=== PATIENT | female | born 1945 | race Hispanic/Latino ===

== ENCOUNTER 2018-07-22 12:03 | Emergency (ER) | payer MEDICARE, MEDICAID ==
[2018-07-22 12:05] VITALS: O2SAT 99
[2018-07-22] MEDS ORDERED: Tdap Vaccine 0.5 ml Vial (10-64 yrs) IM ONE ×2 (13:07→13:59)
--- NOTE | 2018-07-22 13:56 | ED PDOC ---
HPI: Trauma/Fall - HPI Time Seen by Provider: 07/22/18 12:41 Chief Complaint (Nursing): Trauma Chief Complaint (Provider): Trauma History Per: Patient History/Exam Limitations: no limitations Onset/Duration Of Symptoms: Hrs Location Of Injury: Left: Knee, Wrist Severity: Moderate Associated Symptoms: denies: Dizziness, Dazed, LOC, Seizure, Memory Impairment Additional Complaint(s): 73 y/o female presents to the ED complaining of tripping and falling on [address] at 12pm today. Patient states one of the [place] was elevated and tripped landing oh her left side of the body. She reports she tried to break her fall with left hand and landed on her left knee and face. Patient is compl aining of headache, facial pain, left wrist pain, and left knee pain. Patient denies loss of consciousness, change in vision, nausea, vomiting, or any blood thinner medication. Last Tetanus Vaccination unknown PMD: Elvis Mosquera - Fall Fall:Prior To Injury: Tripped. denies: Passed Out, Almost Passed Out, Slipped, [place] Lightheaded, Vertigo, Lost Balance, Other Past Medical History Reviewed: Historical Data, Nursing Documentation, Vital Signs Vital Signs: Last Vital Signs Temp 98 F 07/22/18 12:05 Pulse 86 07/22/18 12:05 Resp 16 07/22/18 12:05 BP 155/86 H 07/22/18 12:05 Pulse Ox 99 07/22/18 12:05 Primary Care Provider: Elvis Bullard - Medical History PMH: No Chronic Diseases - Surgical History Surgical History: No Surg Hx - Family History Family History: States: Unknown Family Hx - Living Arrangements Living Arrangements: Alone - Social History Alcohol: None Drugs: Denies - Immunization History Hx Influenza Vaccination: No Hx Pneumococcal Vaccination: No - Home Medications Home Medications: Ambulatory Orders Medication Instructions Recorded Bacitracin OINT 1 applic TP BID #1 tube 07/22/18 Ibuprofen [Motrin] 400 mg PO Q6H PRN #30 tab 07/22/18 - Allergies Allergies/Adverse Reactions: Allergies Allergy/AdvReac Type Severity Reaction Status Date / Time No Known Allergies Allergy Verified 07/22/18 12:07 Review of Systems ROS Statement: Except As Marked, All Systems Reviewed And Found Negative Eyes: Negative for: Vision Change Gastrointestinal: Negative for: Nausea, Vomiting Musculoskeletal: Positive for: Arm Pain (wrist pain), Leg Pain (left knee pain). Negative for: Neck Pain, Shoulder Pain, Back Pain, Hand Pain, Foot Pain Neurological: Positive for: Headache. Negative for: Weakness, Incoordination, Confusion, Altered Mental Status, Dizziness Physical Exam - Reviewed Nursing Documentation Reviewed: Yes Vital Signs Reviewed: Yes - Physical Exam Appears: Positive for: Well, No Acute Distress Head Exam: Positive for: NORMAL INSPECTION (hematoma with abrasion left side of her forehead ), NORMOCEPHALIC. Negative for: ATRAUMATIC (hematoma to left forehead) Eye Exam: Positive for: Normal appearance, EOMI, PERRL, Other. Negative for: Conjunctival injection, Scleral icterus ENT: Positive for: Normal ENT Inspection, Other (No deformity. Dentition intact. no injury to the mouth or jaw; good ROM opening and closing mandible. no nasal bleeding or discharge. nasal bone midline without deformity. abasion noted to bridge of the nose.). Negative for: Tonsillar Swelling Neck: Positive for: Normal, Painless ROM, Supple Cardiovascular/Chest: Positive for: Regular Rate, Rhythm Respiratory: Positive for: Normal Breath Sounds. Negative for: Wheezing Gastrointestinal/Abdominal: Positive for: Normal Exam, Bowel Sounds (normactive ), Soft. Negative for: Tenderness Pelvic Exam: Positive for: Other (Stable) Back: Positive for: Normal Inspection. Negative for: Vertebral Tenderness Extremity: Positive for: Normal ROM (Shoulder and elbow full ROM bilaterally.), Swelling (swelling and abrasion to the left knee. ), Other (Full ROM of left knee with discomfort. No deformity or swelling to the left wrist. 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 Negative for: Motor/Sensory Deficits Comments: Patient is complaining of periorbital pain. No below the knee injuries or swelling noted. [place] pulses 2+ bilaterally. - ECG O2 Sat by Pulse Oximetry: 99 Medical Decision Making Medical Decision Making: Time:1306 Impression: Wound irritation and vaccination to the abrasion on face and knee. Patient refuse pain medication at this time. Plan: -CT head -Ct maxillo -Knee x-ray -US wrist -Tetanus 1334: Patient out of the room without ambulating without difficulty 15:30 Dr. Townsend called to have wrist xray repeated due to questionable fracture of the wrist. Patient notified and agrees with plan. 17:30 Left triquetral fx, Dr. vick called, recommended to place patient in left wrist brace. Follow-up in office in one week. Clinical findings discussed with patient. She states understanding and agrees with plan. no further work-up needed in ED. Patient stable for discharge home. Rx given for motrin and bacitricin. Accession No. : [id number] Patient Name / ID : CAITLIN ANGELO / [id number] Exam Date : 07/22/2018 14:29:51 ( Approved ) Study Comment : Sex / Age : F / 73Y Creator : Pablo Monzon MD Dictator : Pablo Monzon MD Commercial Green Building Designer : Cement Block Maker : Pablo Monzon MD Approver2 : Report Date : 07/22/2018 14:59:00 My Comment : Date of service: 07/22/2018 PROCEDURE: CT MAXILLOFACIAL BONES WITHOUT CONTRAST HISTORY: fall/ facial injuries COMPARISON: Not available TECHNIQUE: Contiguous axial CT images of the maxillofacial bones were obtained. Coronal and sagittal reformats were generated. Radiation dose: Total exam DLP = 888.75 mGy-cm. This CT exam was performed using one or more of the following dose reduction techniques: Automated exposure control, adjustment of the mA and/or kV according to patient size, and/or use of iterative reconstruction technique. FINDINGS: NASAL BONES: Unremarkable. ORBITS: No orbital fracture. No intraorbital hemorrhage. The globes are rounded and symmetric. PARANASAL SINUSES/ MASTOIDS: Clear. MAXILLA: Unremarkable. MANDIBLE/ TEMPOROMANDIBULAR JOINTS: Unremarkable. SKULL BASE: Unremarkable. TEMPORAL BONES: Middle ears and mastoid grossly unremarkable. OTHER FINDINGS: Left frontal scalp contusion extends to left superior palpebrum. IMPRESSION: Left frontal scalp contusion extending to left superior palpebrum. No orbital f racture. Otherwise unremarkable. Accession No. : [id number] Patient Name / ID : CAITLIN ANGELO / [id number] Exam Date : 07/22/2018 14:27:24 ( Approved ) Study Comment : Sex / Age : F / 73Y Creator : Pablo Monzon MD Dictator : Pablo Monzon MD Commercial Green Building Designer : Cement Block Maker : Pablo Monzon MD Approver2 : Report Date : 07/22/2018 14:54:33 My Comment : Date of service: 07/22/2018 PROCEDURE: CT HEAD WITHOUT CONTRAST. HISTORY: fall/ head injury COMPARISON: Not available TECHNIQUE: Axial computed tomography images were obtained through the head/brain without intravenous contrast. Radiation dose: Total exam DLP = 768.18 mGy-cm. This CT exam was performed using one or more of the following dose reduction techniques: Automated exposure control, adjustment of the mA and/or kV according to patient size, and/or use of iterative reconstruction technique. FINDINGS: HEMORRHAGE: No intracranial hemorrhage. BRAIN: No mass effect or edema. No significant atrophy. Minimal periventricular white matter lucency consistent with chronic microvascular white matter ischemic change. No evidence of acute infarct. VENTRICLES: Unremarkable. No hydrocephalus. CALVARIUM: No fracture. Left frontal scalp contusion extending into left superior palpebrum. PARANASAL SINUSES: Unremarkable as visualized. No significant inflammatory changes. MASTOID AIR CELLS: Unremarkable as visualized. No inflammatory changes. OTHER FINDINGS: None. IMPRESSION: No intracranial hemorrhage. Left frontal scalp contusion extends into left superior palpebrum. Minimal chronic white matter ischemic change. Accession No. : [id number] Patient Name / ID : CAITLIN ANGELO / [id number] Exam Date : 07/22/2018 13:53:02 ( Approved ) Study Comment : Sex / Age : F Y Creator : Dictator : Hank Briggs MD Commercial Green Building Designer : Cement Block Maker : Hank Briggs MD Approver2 : Report Date : My Comment : Date of service: 07/22/2018 PROCEDURE: Left Knee Radiographs. HISTORY: Pain. COMPARISON: None. TECHNIQUE: 2 views obtained. FINDINGS: BONES: Normal. No fracture. JOINTS: Small marginal osteophyte formation seen arising from the distal medial femoral condyle and medial tibial plateau JOINT EFFUSION: Trace suprapatellar joint effusion OTHER FINDINGS: None. IMPRESSION: No definitive radiographic evidence of acute displaced fracture nor dislocation. If symptoms persist or occult fracture suspected clinically recommend repeat radiographs 7-10 days as most fractures should become radiographically evident in this timeframe. Trace suprapatellar joint effusion. Accession No. : [id number] Patient Name / ID : CAITLIN ANGELO / [id number] Exam Date : 07/22/2018 16:23:43 ( Approved ) Study Comment : Sex / Age : F / 73Y Creator : Hank Briggs MD Dictator : Hank Briggs MD Commercial Green Building Designer : Cement Block Maker : Hank Briggs MD Approver2 : Report Date : 07/22/2018 16:49:59 My Comment : Date of service: 07/22/2018 PROCEDURE: Left Wrist Radiographs. HISTORY: Fall COMPARISON: Correlation made with earlier film same day TECHNIQUE: Three views left wrist performed FINDINGS: BONES: Current study reveals what appears to represent a fracture of the triquetrum. There is mild surrounding soft tissue swelling as well. JOINTS: Normal. No dislocation. SOFT TISSUES: As above OTHER FINDINGS: None. IMPRESSION: Apparent left triquetrum fracture with mild surrounding soft tissue swelling Scribe Attestation: Documented by Ivette Schaeffer, acting as a scribe for Merry Honeycutt. Provider Scribe Attestation: All medical record entries made by the Scribe were at my direction and personally dictated by me. I have reviewed the chart and agree that the record accurately reflects my personal performance of the history, physical exam, medical decision making, and the department course for this patient. I have also personally directed, reviewed, and agree with the discharge instructions and disposition. Disposition - Clinical Impression Clinical Impression: Fracture, triquetral bone - Patient ED Disposition Is Patient to be Admitted: No Counseled Patient/Family Regarding: Diagnosis, Need For Followup, Rx Given - Disposition Referrals: Cody Vick MD [Medical Doctor] - Disposition Time: 17:33 Condition: GOOD Prescriptions: Bacitracin OINT 1 applic TP BID #1 tube Ibuprofen [Motrin] 400 mg PO Q6H PRN #30 tab PRN Reason: Pain, Moderate (4-7) Instructions: Wrist Fracture (DC) Forms: [employer] (Tajik) Print Language: JAPANESE - POA Present On Arrival: None
--- NOTE | 2018-07-22 14:28 | RAD ---
Date of service: 07/22/2018 PROCEDURE: Left Knee Radiographs. HISTORY: Pain. COMPARISON: None. TECHNIQUE: 2 views obtained. FINDINGS: BONES: Normal. No fracture. JOINTS: Small marginal osteophyte formation seen arising from the distal medial femoral condyle and medial tibial plateau JOINT EFFUSION: Trace suprapatellar joint effusion OTHER FINDINGS: None. IMPRESSION: No definitive radiographic evidence of acute displaced fracture nor dislocation. If symptoms persist or occult fracture suspected clinically recommend repeat radiographs 7-10 days as most fractures should become radiographically evident in this timeframe. Trace suprapatellar joint effusion.
--- NOTE | 2018-07-22 14:58 | CT ---
Date of service: 07/22/2018 PROCEDURE: CT HEAD WITHOUT CONTRAST. HISTORY: fall/ head injury COMPARISON: Not available TECHNIQUE: Axial computed tomography images were obtained through the head/brain without intravenous contrast. Radiation dose: Total exam DLP = 768.18 mGy-cm. This CT exam was performed using one or more of the following dose reduction techniques: Automated exposure control, adjustment of the mA and/or kV according to patient size, and/or use of iterative reconstruction technique. FINDINGS: HEMORRHAGE: No intracranial hemorrhage. BRAIN: No mass effect or edema. No significant atrophy. Minimal periventricular white matter lucency consistent with chronic microvascular white matter ischemic change. No evidence of acute infarct. VENTRICLES: Unremarkable. No hydrocephalus. CALVARIUM: No fracture. Left frontal scalp contusion extending into left superior palpebrum. PARANASAL SINUSES: Unremarkable as visualized. No significant inflammatory changes. MASTOID AIR CELLS: Unremarkable as visualized. No inflammatory changes. OTHER FINDINGS: None. IMPRESSION: No intracranial hemorrhage. Left frontal scalp contusion extends into left superior palpebrum. Minimal chronic white matter ischemic change.
--- NOTE | 2018-07-22 15:02 | CT ---
Date of service: 07/22/2018 PROCEDURE: CT MAXILLOFACIAL BONES WITHOUT CONTRAST HISTORY: fall/ facial injuries COMPARISON: Not available TECHNIQUE: Contiguous axial CT images of the maxillofacial bones were obtained. Coronal and sagittal reformats were generated. Radiation dose: Total exam DLP = 888.75 mGy-cm. This CT exam was performed using one or more of the following dose reduction techniques: Automated exposure control, adjustment of the mA and/or kV according to patient size, and/or use of iterative reconstruction technique. FINDINGS: NASAL BONES: Unremarkable. ORBITS: No orbital fracture. No intraorbital hemorrhage. The globes are rounded and symmetric. PARANASAL SINUSES/ MASTOIDS: Clear. MAXILLA: Unremarkable. MANDIBLE/ TEMPOROMANDIBULAR JOINTS: Unremarkable. SKULL BASE: Unremarkable. TEMPORAL BONES: Middle ears and mastoid grossly unremarkable. OTHER FINDINGS: Left frontal scalp contusion extends to left superior palpebrum. IMPRESSION: Left frontal scalp contusion extending to left superior palpebrum. No orbital fracture. Otherwise unremarkable.
[2018-07-22 17:51] VITALS: BP 131/76; PULSE 82; RESP 18; TEMP 98.2
--- NOTE | 2018-07-26 08:37 | RAD ---
Date of service: 07/22/2018 PROCEDURE: Left Wrist Radiographs. HISTORY: Fall COMPARISON: Correlation made with earlier film same day TECHNIQUE: Three views left wrist performed FINDINGS: BONES: Current study reveals what appears to represent a fracture of the triquetrum. There is mild surrounding soft tissue swelling as well. JOINTS: Normal. No dislocation. SOFT TISSUES: As above OTHER FINDINGS: None. IMPRESSION: Apparent left triquetrum fracture with mild surrounding soft tissue swelling.
--- NOTE | 2018-07-26 08:37 | RAD ---
Date of service: 07/22/2018 PROCEDURE: Left Wrist Radiographs. HISTORY: fall COMPARISON: None. TECHNIQUE: 4 views obtained. FINDINGS: BONES: Suspected triquetrum fracture. No other fracture identified. JOINTS: Normal. No dislocation. SOFT TISSUES: Normal. OTHER FINDINGS: None. IMPRESSION: Suspected triquetral fracture.
== END 2018-07-22 17:50 | disposition home or self-care (01) ==
LOC: H.ER 12:03
DX: S62.116A Nondisplaced fracture of triquetrum [cuneiform] bone, unspecified wrist, initial encounter for closed fracture (principal); S00.03XA Contusion of scalp, initial encounter; S80.212A Abrasion, left knee, initial encounter; W19.XXXA Unspecified fall, initial encounter; Y92.89 Other specified places as the place of occurrence of the external cause